=== PATIENT | female | born 1985 | race Caucasian/White ===

== ENCOUNTER 2018-05-28 09:52 | Day surgery (SDC) | END 2018-05-28 16:46 | disposition home or self-care (01) ==

== ENCOUNTER 2019-02-05 09:53 | Day surgery (SDC) | payer OTHER ==
[~2019-02-05] VITALS: Ht 160 cm; Wt 81.5 kg
[2019-02-05] VITALS (11 sets, daily range): BP systolic 97–113; BP diastolic 60–68; PULSE 64–94; RESP 13–20; Ht 160 cm; Wt 81.5 kg
[2019-02-05] MEDS ORDERED: CEFAZOLIN 2 GM/50 ML (PMX) 50 ML IVPB SCH (10:30)
[2019-02-05] MEDS ORDERED: SOD CHLORIDE 0.9% 1,000 ML IV SCH (10:30)
--- NOTE | 2019-02-05 12:00 | PREAC ---
Date/Time of Note Date/Time of Note DATE: 02/05/19 TIME: 11:58 Anesthesia Eval and Record Evaluation Time Pre-Procedure Interview DATE: 02/05/19 TIME: 11:58 Age 34 Sex female NPO: 8 hrs Preoperative diagnosis back lipoma Planned procedure excision of lower back lipoma Past Medical History Past Medical History: None Surgery & Anesthesia Issues No known issue Meds Anticoagulation: No Beta Nieves within 24 hr: No Reason Beta Nieves not given: Pt. not on B-Nieves No Active Prescriptions or Reported Meds Current Medications Sodium Chloride 1,000 ml @ 75 mls/hr [id number] IV Last administered on 02/05/19at 10:38; Admin Dose 75 MLS/HR; Start 02/05/19 at 10:30; Stop 02/05/19 at 22:30 Meds reviewed: Yes Allergies Coded Allergies: No Known Allergy (Unverified , 02/05/19) Allergies Reviewed: Yes Labs/Studies Labs Reviewed: Reviewed by anesthesiologist test: Negative Pre-procedure Exam Last vitals Vital Signs Date Temp Pulse Resp B/P (MAP) Pulse Ox O2 O2 Flow FiO2 Time Delivery Rate 02/05/19 98.3 94 16 108/68 98 Room Air 10:36 (81) Airway: Adequate mouth opening, Adequate thyromental dist Mallampati: Mallampati II Teeth: Normal Lung: Normal Heart: Normal ASA Physical Status ASA physical status: 1 Emergency: None Planned Anesthetic General/MAC: MAC Planned Pain Management Parenteral pain med Pre-operative Attestations Prior to commencing anesthesia and surgery, the patient was re-evaluated, there was verification of: *The patient's identity *The results of appropriate recent lab work and preoperative vital signs *The above evaluation not changing prior to induction *Anesthetic plan, risk benefits, alternative and complications discussed with patient/family; questions answered; patient/family understands, accepts and wishes to proceed. BACILIO JON Feb 05, 2019 12:00
[2019-02-05] MEDS ORDERED: MIDAZOLAM 1 MG/ML 2 ML INJ ONE (12:07)
[2019-02-05] MEDS ORDERED: FENTAnyl 50 MCG/ML VIAL ONE ×2 (12:07→13:12)
[2019-02-05] MEDS ORDERED: LIDOCAINE 1% (MPF) 30 ML INJ ONE (12:27)
[2019-02-05] MEDS ORDERED: BUPIVACAINE 0.25%/EPI (SDV) 30 ML INJ ONE (12:27)
[2019-02-05] MEDS ORDERED: CEFAZOLIN 1 GM INJ ONE (12:29)
[2019-02-05] MEDS ORDERED: PROPOFOL 20 ML ONE (12:30)
[2019-02-05] MEDS ORDERED: LIDOCAINE 2% (SDV) 5 ML INJ ONE (12:30)
--- NOTE | 2019-02-05 13:12 | PAC ---
Date/Time of Note Date/Time of Note DATE: 02/05/19 TIME: 13:12 Post-Anesthesia Notes Post-Anesthesia Note Last documented vital signs Vital Signs Date Temp Pulse Resp B/P (MAP) Pulse Ox O2 O2 Flow FiO2 Time Delivery Rate 02/05/19 98.3 94 16 108/68 98 Room Air 1312 (81) Activity: WNL Respiratory function: WNL Cardiovascular function: WNL Mental status: Baseline Pain reasonably controlled: Yes Hydration appropriate: Yes Nausea/Vomiting absent: Yes BACILIO JON Feb 05, 2019 13:12
--- NOTE | 2019-02-05 13:27 | HPN ---
Date/Time of Note Date/Time of Note DATE: 02/05/19 TIME: 13:27 Interval H&P Admission Note Pt. seen H&P reviewed: No system changes RUTH BAÑUELOS Feb 05, 2019 13:27
--- NOTE | 2019-02-05 13:27 | OPR ---
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 Had been recently growing in size and causing increased pain. In order to provide symptomatic relief she will undergo excision. Procedure Description There was a lesion that was roughly 6 cm in width that was very deep and painful to palpation. A total of 30 mL of a combination of quarter percent Marcaine and 1% lidocaine with epinephrine was instilled into the dermal region at the area overlying the lump. A 15 blade was then used to cut through the dermis and the subcutaneous tissue until the tumor was encountered. The tumor was noted to be located beneath the fascia and adjacent to the bone of the patient's thoracic and lumbar spine and involved under the spinatus muscles. The lesion was circumferentially excised from surrounding muscle fascia and subcutaneous tissue and passed off the field. It was fatty and content consistent with a lipoma and measured about 6 to 7 cm. The area was irrigated and inspected and confirmed to be hemostatic. The wound was thereafter closed in 2 layers first placing horizontal mattress sutures to relieve any tension and george the skin edges and thereafter 4-0 Monocryl interrupted buried sutures to reapproximate the skin edges. Wet dry dressings were applied and the incision was covered with dry sterile dressing. All instrument sponge and needle counts were correct at the end of the procedure. Patient was dispositioned to the recovery suite in stable condition. RUTH BAÑUELOS Feb 05, 2019 13:27
[2019-02-05] MEDS ORDERED: OXYCODONE/ACETAMINOPHEN (5/325) TAB PO PRN ×2 (13:30)
[2019-02-05] MEDS ORDERED: EPHEDrine SULFATE 50 MG/5 ML SYG IV PRN (13:30)
[2019-02-05] MEDS ORDERED: MIDAZOLAM 1 MG/ML 2 ML INJ IV PRN (13:30)
[2019-02-05] MEDS ORDERED: ALBUTEROL 0.083% (NEB) 2.5 MG/3 ML AMP HHN PRN (13:30)
[2019-02-05] MEDS ORDERED: KETOROLAC 30 MG INJ IV PRN (13:30)
[2019-02-05] MEDS ORDERED: FENTAnyl 50 MCG/ML VIAL IV PRN ×3 (13:30)
[2019-02-05] MEDS ORDERED: ONDANSETRON 4 MG INJ IV PRN (13:30)
[2019-02-05] MEDS ORDERED: DIPHENHYDRAMINE 50 MG INJ IV PRN (13:30)
[2019-02-05] MEDS ORDERED: LABETALOL HCL 20MG INJ IV PRN (13:30)
[2019-02-05] MEDS ORDERED: hydrALAzine 20 MG INJ IV PRN (13:30)
[2019-02-05] MEDS ORDERED: MEPERIDINE 25 MG INJ IV PRN (13:30)
== END 2019-02-05 15:00 | disposition home or self-care (01) ==
LOC: SDS 09:53
PROVIDERS: ATTEND Surgery Surgical Critical Care
DX: D17.1 Benign lipomatous neoplasm of skin and subcutaneous tissue of trunk (principal)
CPT/HCPCS: 21933; J0690; J1885; J2250; J3010; Z7610